=== PATIENT | female | born 1985 | race Caucasian/White ===

== ENCOUNTER 2022-01-07 10:50 | Inpatient (IN) ==
[2022-01-07] MEDS ORDERED: MAGNESIUM SULF RIDER 4 GM/100 ML PREMIX IV ONE (11:27)
[2022-01-07] MEDS: LACTATED RINGERS 1,000 ML IV SCH ×2 (11:33→22:19)
[2022-01-07 11:43] LABS: Basophils % 0.2 % (0.0-0.8); Eosinophils # 0.1 10*3/uL (0.0-0.87); Eosinophils % 0.8 % (0.00-10.9); Hematocrit 32.1 VOL% (35.7-47.0); Immature Granulocytes % 0.5 %; Immature Granulocytes Absolute 0.05 #; Lymphocytes # 1.3 10*3/uL (1.4-4.0); Mean Corpuscular HGB Conc 34.3 GM/DL (32-36); Mean Corpuscular Volume 85.4 FL (87-102); Mean Platelet Volume 10.8 FL (9.6-12.0); Monocytes # 0.5 10*3/uL (0.11-0.8); Monocytes % 4.6 % (1.7-12.7); Neutrophils % 81.9 % (38.7-73.9); Platelet Count 254 T/CUMM (130-400); Red Blood Count 3.76 MC/CUMM (3.8-5.5); Red Cell Distribution Width 12.5 % (9.3-17.3)
[2022-01-07 12:00] LABS: INR 0.9; PT Patient Result 9.9 SECS (10.1-12.1); Partial Thromboplastin Time 26.1 SECS (23.7-32.9)
[2022-01-07 12:03] LABS: Alanine Aminotransferase 15 U/L (13-56); Albumin 2.6 G/DL (3.4-5.0); Alkaline Phosphatase 111 U/L (45-117); Aspartate Amino Transferase 19 U/L (0-37); Bilirubin,Direct < 0.100 MG/DL (0.0-0.20); Blood Urea Nitrogen 5 MG/DL (7-18); Calcium 8.9 MG/DL (8.5-10.1); Carbon Dioxide 24 MMOL/L (21-32); Chloride 108 MMOL/L (98-107); Glucose 85 MG/DL (74-106); Osmolality,Calculated 276.3 MOS/KG (273-304); Potassium 2.9 MMOL/L (3.5-5.1); Sodium 141 MMOL/L (136-145); Total Protein 6.7 G/DL (6.4-8.2)
[2022-01-07] MEDS: amLODIPine 10 MG TABLET PO SCH (12:11)
[2022-01-07] MEDS: BETAMETH SODIUM PHOS/ACETATE 30 MG/5 ML VIAL IM SCH (12:11)
[2022-01-07] MEDS: MAGNESIUM SULF DRIP 40 GM/1,000 ML ML IV SCH (12:30)
[2022-01-07] MEDS: ASPIRIN EC 81 MG TABLET PO SCH (16:18)
[2022-01-07] MEDS: LABETALOL 100 MG TABLET PO SCH (16:24)
[2022-01-07] MEDS: POTASSIUM CHLORIDE 20 MEQ TABLET PO PRN ×2 (18:12→22:43)
[2022-01-07] MEDS ORDERED: ZALEPLON 5 MG CAPSULE PO ONE (22:45)
[2022-01-08] MEDS: POTASSIUM CHLORIDE 20 MEQ TABLET PO PRN ×6 (01:12→17:59)
[2022-01-08] MEDS: LABETALOL 100 MG TABLET PO SCH ×3 (02:27→21:05)
[2022-01-08 03:43] LABS: Bacteria,Urine Occasional /HPF (Few); Glucose,Urine (UA) Negative (Negative); Ketones,Urine 80 mg/dL (Negative); Mucus,Urine Occasional /LPF (Occasional); Nitrite,Urine Negative (Negative); Protein,Urine Negative (Negative); RBC,Urine 2 /HPF (0-4); Squamous Epithelial Cell,Urine Occasional /HPF (0-10); Urine Appearance Clear (Clear); Urine Color Yellow (Yellow); Urine Specific Gravity 1.025 (1.001-1.035); Urine pH 6.5 (4.5-8.0)
[2022-01-08 03:44] LABS: Bilirubin,Urine Negative (Negative); Blood, Urine Negative (Negative); Urine Urobilinogen 0.2 eU/dL (<2.0)
[2022-01-08 03:51] LABS: Protein/Creatinine Ratio,Urine 0.6 RATIO
[2022-01-08] MEDS: LACTATED RINGERS 1,000 ML IV SCH ×2 (04:06→15:55)
[2022-01-08] MEDS ORDERED: oxyCODONE/ACETAMINOPHEN 5-325 MG TABLET PO PRN (06:30)
[2022-01-08] MEDS: MAGNESIUM SULF DRIP 40 GM/1,000 ML ML IV SCH ×2 (08:11→15:55)
[2022-01-08] MEDS ORDERED: LABETALOL 200 MG TABLET PO SCH (09:00)
[2022-01-08] MEDS ORDERED: ONDANSETRON 4 MG/2 ML VIAL IV PRN (11:33)
[2022-01-08] MEDS ORDERED: ASPIRIN EC 81 MG TABLET PO SCH (12:00)
[2022-01-08] MEDS: ASPIRIN EC 81 MG TABLET PO SCH (12:25)
[2022-01-08] MEDS: amLODIPine 10 MG TABLET PO SCH (12:25)
[2022-01-08] MEDS: BETAMETH SODIUM PHOS/ACETATE 30 MG/5 ML VIAL IM SCH (12:26)
[2022-01-09] MEDS: LABETALOL 100 MG TABLET PO SCH ×2 (08:36→20:40)
[2022-01-09] MEDS ORDERED: SIMETHICONE CHEW 125 MG TABLET PO PRN (11:25)
[2022-01-09] MEDS ORDERED: SIMETHICONE CHEW 80 MG TABLET PO PRN (11:35)
[2022-01-09] MEDS: amLODIPine 10 MG TABLET PO SCH (11:49)
[2022-01-09] MEDS: ASPIRIN EC 81 MG TABLET PO SCH (11:50)
[2022-01-09] MEDS ORDERED: ALUMINUM/MAGNES/SIMETH MAX STR 30 ML UDCUP PO PRN (16:34)
[2022-01-09] MEDS ORDERED: ACETAMINOPHEN 325 MG TABLET PO PRN (17:59)
[2022-01-10 07:30] VITALS: BP 128/70
[2022-01-10] MEDS: LABETALOL 100 MG TABLET PO SCH (09:45)
== END 2022-01-10 10:30 | disposition home or self-care (01) | DRG 833 ==
LOC: N.LDOUT 10:50 → N.LD 10:51 → N.OB 01-09 10:06
PROVIDERS: ADMIT Specialist; ATTEND Specialist

== ENCOUNTER 2022-01-12 14:05 | Inpatient (IN) ==
[2022-01-12] MEDS ORDERED: TRANEXAMIC ACID 1,000 MG in SODIUM CHLORIDE 0.9% 100 ML IV PRN (14:25)
[2022-01-12] MEDS ORDERED: OXYTOCIN/LR 20 UNIT/1,000 ML BAG IV ONE ×2 (14:25→21:17)
[2022-01-12] MEDS ORDERED: ONDANSETRON 4 MG/2 ML VIAL IV PRN ×2 (14:25→21:17)
[2022-01-12] MEDS ORDERED: BUTORPHANOL 2 MG/ML VIAL IV PRN (14:25)
[2022-01-12] MEDS ORDERED: MEPERIDINE 50 MG/1 ML VIAL IV PRN (14:25)
[2022-01-12] MEDS ORDERED: CARBOPROST TROMETHAMINE 250 MCG/ML AMP IM PRN (14:25)
[2022-01-12] MEDS ORDERED: miSOPROStoL 200 MCG TABLET RECTAL PRN (14:25)
[2022-01-12] MEDS ORDERED: METHYLERGONOVINE 0.2 MG/1 ML AMP IM PRN (14:25)
[2022-01-12] MEDS ORDERED: LACTATED RINGERS 1,000 ML IV SCH ×2 (14:30→16:30)
[2022-01-12 14:51] LABS: Basophils % 0.2 % (0.0-0.8); Eosinophils # 0.1 10*3/uL (0.0-0.87); Immature Granulocytes % 0.5 %; Immature Granulocytes Absolute 0.08 #; Lymphocytes % 13.9 % (21.3-54.2); Mean Corpuscular HGB Conc 34.3 GM/DL (32-36); Mean Corpuscular Volume 86.2 FL (87-102); Mean Platelet Volume 10.5 FL (9.6-12.0); Monocytes # 0.7 10*3/uL (0.11-0.8); Monocytes % 4.8 % (1.7-12.7); Neutrophils % 79.6 % (38.7-73.9); Platelet Count 297 T/CUMM (130-400); Red Blood Count 4.06 MC/CUMM (3.8-5.5); Red Cell Distribution Width 12.6 % (9.3-17.3); White Blood Count 14.6 T/CUMM (4-12)
[2022-01-12] MEDS ORDERED: AMPICILLIN INJ 2,000 MG in SODIUM CHLORIDE 0.9% 100 ML IV ONE (15:00)
[2022-01-12 15:08] LABS: Alanine Aminotransferase 17 U/L (13-56); Albumin 2.8 G/DL (3.4-5.0); Alkaline Phosphatase 111 U/L (45-117); Aspartate Amino Transferase 17 U/L (0-37); Bilirubin,Total < 0.39 MG/DL (0.20-1.00); Blood Urea Nitrogen 8 MG/DL (7-18); Calcium 9.3 MG/DL (8.5-10.1); Carbon Dioxide 21 MMOL/L (21-32); Chloride 109 MMOL/L (98-107); Glucose 110 MG/DL (74-106); Osmolality,Calculated 277.4 MOS/KG (273-304); Potassium 3.2 MMOL/L (3.5-5.1); Sodium 140 MMOL/L (136-145); Total Protein 6.8 G/DL (6.4-8.2)
[2022-01-12] MEDS ORDERED: OXYTOCIN/LR 20 UNIT/1,000 ML BAG IV SCH (16:00)
[2022-01-12 16:04] LABS: INR 0.9; PT Patient Result 9.6 SECS (10.1-12.1); Partial Thromboplastin Time 24.1 SECS (23.7-32.9)
[2022-01-12] MEDS ORDERED: LACTATED RINGERS 1,000 ML IV ONE (16:13)
[2022-01-12] MEDS ORDERED: PROMETHAZINE 25 MG/1 ML VIAL IM ONE (16:13)
[2022-01-12] MEDS ORDERED: LACTATED RINGERS 250 ML IV PRN (16:13)
[2022-01-12] MEDS ORDERED: hydrOXYzine HCL 25 MG/1 ML VIAL IM PRN (16:13)
[2022-01-12] MEDS ORDERED: FAMOTIDINE 20 MG/2 ML VIAL IV ONE (16:13)
[2022-01-12] MEDS ORDERED: ePHEDrine 50 MG/ML VIAL IV PRN (16:13)
[2022-01-12] MEDS ORDERED: ONDANSETRON 4 MG/2 ML VIAL IV ONE (16:13)
[2022-01-12] MEDS ORDERED: diphenhydrAMINE 50 MG/1 ML VIAL IV PRN ×2 (16:13)
[2022-01-12] MEDS ORDERED: CITRIC ACID/SODIUM CITRATE 30 ML UDCUP PO ONE (16:13)
[2022-01-12] MEDS ORDERED: NALOXONE 0.4 MG/ML VIAL IV PRN (16:13)
[2022-01-12] MEDS ORDERED: ePHEDrine 50 MG/ML VIAL ONE (16:17)
[2022-01-12] MEDS ORDERED: CITRIC ACID/SODIUM CITRATE 30 ML UDCUP ONE (16:17)
[2022-01-12] MEDS ORDERED: fentaNYL 2 MCG/ROPIV 0.2% EPID 100 ML EPIDURAL SCH (16:30)
[2022-01-12 18:04] LABS: Bacteria,Urine Occasional /HPF (Few); Bilirubin,Urine Negative (Negative); Glucose,Urine (UA) Negative (Negative); Ketones,Urine Negative (Negative); Nitrite,Urine Negative (Negative); Protein,Urine Negative (Negative); RBC,Urine 1 /HPF (0-4); Urine Appearance Clear (Clear); Urine Color Yellow (Yellow); Urine Specific Gravity 1.015 (1.001-1.035)
[2022-01-12 18:05] LABS: Blood, Urine Negative (Negative); Urine Urobilinogen 0.2 eU/dL (<2.0)
[2022-01-12] MEDS: POTASSIUM CHLORIDE 20 MEQ TABLET PO PRN ×3 (18:47→23:15)
[2022-01-12] MEDS ORDERED: AMPICILLIN INJ 1,000 MG in SODIUM CHLORIDE 0.9% 100 ML IV SCH (19:00)
[2022-01-12] MEDS ORDERED: ACETAMINOPHEN 500 MG TABLET PO PRN (20:47)
[2022-01-12] MEDS ORDERED: SODIUM BICARBONATE 10 MEQ/10 ML SYRINGE IV ONE (20:51)
[2022-01-12] MEDS ORDERED: LABETALOL 100 MG TABLET PO SCH (21:00)
[2022-01-12] MEDS ORDERED: IBUPROFEN 800 MG TABLET PO PRN (21:17)
[2022-01-12] MEDS ORDERED: BENZOCAINE 20%/MENTHOL 0.5% SPRAY 56 GM CAN TOP PRN (21:17)
[2022-01-12] MEDS ORDERED: BISACODYL 10 MG SUPP RECTAL PRN (21:17)
[2022-01-12] MEDS ORDERED: MEASLES/MUMPS/RUBELLA VACCINE 0.5 ML VIAL SUBCUT ONE (21:17)
[2022-01-12] MEDS ORDERED: HYDROCORTISONE 2.5% RECTAL CREAM 30 GM TUBE TOP PRN (21:17)
[2022-01-12] MEDS ORDERED: LANOLIN 50% CREAM 0.3 OZ TUBE TOP PRN (21:17)
[2022-01-12] MEDS ORDERED: ACETAMINOPHEN 325 MG TABLET PO PRN (21:17)
[2022-01-12] MEDS ORDERED: DIPH/TET/ACEL PERT BOOSTER VACCINE 0.5 ML VIAL IM ONE (21:17)
[2022-01-12] MEDS ORDERED: WITCH HAZEL PADS 100/JAR TOP PRN (21:17)
[2022-01-12] MEDS ORDERED: RHO(D) IMMUNE GLOBULIN 300 MCG SYRINGE IM ONE (21:17)
[2022-01-12] MEDS ORDERED: oxyCODONE/ACETAMINOPHEN 5-325 MG TABLET PO PRN ×2 (21:17)
[2022-01-12 21:29] LABS: Cord Venous Blood HCO3 24.7 MMOL/L; Cord Venous Blood PCO2 39.3 MMHG; Cord Venous Blood PO2 34.3
[2022-01-12] MEDS ORDERED: NIFEdipine 10 MG CAPSULE PO ONE (23:00)
[2022-01-13] MEDS: POTASSIUM CHLORIDE 20 MEQ TABLET PO PRN (01:03)
[2022-01-13] MEDS ORDERED: BENZOCAINE 20%/MENTHOL 0.5% SPRAY 56 GM CAN TOP PRN (03:23)
[2022-01-13] MEDS ORDERED: OXYTOCIN/LR 20 UNIT/1,000 ML BAG IV ONE (03:23)
[2022-01-13] MEDS ORDERED: IBUPROFEN 800 MG TABLET PO PRN (03:23)
[2022-01-13] MEDS ORDERED: MEASLES/MUMPS/RUBELLA VACCINE 0.5 ML VIAL SUBCUT ONE (03:23)
[2022-01-13] MEDS ORDERED: LANOLIN 50% CREAM 0.3 OZ TUBE TOP PRN (03:23)
[2022-01-13] MEDS ORDERED: WITCH HAZEL PADS 100/JAR TOP PRN (03:23)
[2022-01-13] MEDS ORDERED: HYDROCORTISONE 2.5% RECTAL CREAM 30 GM TUBE TOP PRN (03:23)
[2022-01-13] MEDS ORDERED: DIPH/TET/ACEL PERT BOOSTER VACCINE 0.5 ML VIAL IM ONE (03:23)
[2022-01-13] MEDS ORDERED: oxyCODONE/ACETAMINOPHEN 5-325 MG TABLET PO PRN ×2 (03:23)
[2022-01-13] MEDS ORDERED: RHO(D) IMMUNE GLOBULIN 300 MCG SYRINGE IM ONE (03:23)
[2022-01-13] MEDS ORDERED: BISACODYL 10 MG SUPP RECTAL PRN (03:23)
[2022-01-13] MEDS ORDERED: ONDANSETRON 4 MG/2 ML VIAL IV PRN (03:23)
[2022-01-13] MEDS ORDERED: ACETAMINOPHEN 325 MG TABLET PO PRN (03:23)
[2022-01-13] MEDS ORDERED: LABETALOL 200 MG TABLET PO SCH (09:00)
[2022-01-13] MEDS ORDERED: DOCUSATE SODIUM 100 MG CAPSULE PO SCH ×2 (09:00)
[2022-01-13] MEDS ORDERED: amLODIPine 10 MG TABLET PO SCH (12:00)
== END 2022-01-13 17:45 | disposition home or self-care (01) | DRG 807 ==
LOC: N.LD 14:05 → N.LDOUT 14:05 → N.LD 14:07 → EDOUTPBED 14:38 → N.LD 18:11 → UNDODEPREF 01-15 06:46
PROVIDERS: ADMIT Student in an Organized Health Care Education/Training Program; ATTEND Student in an Organized Health Care Education/Training Program